=== PATIENT | male | born 1955 | race African-American/Black ===

== ENCOUNTER 2017-04-08 09:09 | Inpatient (IN) | payer OTHER ==
[~2017-04-08] VITALS: Ht 182.9 cm; Wt 109.0 kg
--- NOTE | 2017-04-08 09:40 | NUR ---
SEE ED ASSESSMENT FOR NOTES. COMFORT MEASURES IMPLEMENTED. PT RECLINED ON ROMMEL IN HI FOWLERS POSITION. CALL LIGHT W/IN REACH. NO S/S OF DISTRESS NOTED AT THIS TIME. PT AWAITING MSE. WILL CONTINUE TO MONITOR.
--- NOTE | 2017-04-08 10:28 | NUR ---
BREATHING TX COMPLETED. PT CONTINUES TO HAVE LOW O2 SAT AT 89% RA. DR. SANCHEZ MADE AWARE.
[2017-04-08 10:30] LABS: BASOPHIL % 0.2 % (0-2); PLATELET COUNT 207 x10^3mcL (130-400)
[2017-04-08 10:33] LABS: CALCIUM 8.7 mg/dL (8.5-10.1); CARBON DIOXIDE 30.8 mmol/L (21-32); CREATININE SERUM 1.3 mg/dL (0.7-1.3); POTASSIUM SERUM 3.8 mmol/L (3.5-5.1)
[2017-04-08 10:39] LABS: ALBUMIN 3.8 g/dL (3.4-5.0); BILIRUBIN TOTAL 0.6 mg/dL (0.20-1.00); TOTAL PROTEIN, SERUM 7.6 g/dL (6.4-8.2)
[2017-04-08 10:43] LABS: RED CELL DISTRIBUTION WIDTH 14.6 % (11.5-14.5)
--- NOTE | 2017-04-08 10:50 | NUR ---
MEDICATED ORDERED. PLEASE SEE EMR.
--- NOTE | 2017-04-08 11:34 | NUR ---
DR. SANCHEZ AT BEDSIDE FOR PLAN OF CARE.
--- NOTE | 2017-04-08 11:57 | NUR ---
REPORT GIVEN TO RENEE ELLINGTON FOR CONTINUATION OF CARE PRIMARY RN.
--- NOTE | 2017-04-08 12:00 | NUR ---
REPORT RECEIVED FROM ED, WILL AWAIT PT'S ARRIVAL.
[2017-04-08 12:38] LABS: MAGNESIUM 2.2 mg/dL (1.8-2.4); PHOSPHOROUS 3.9 mg/dL (2.5-4.9)
[2017-04-08 12:45] LABS: T3 TOTAL 0.87 ng/mL
[2017-04-08 12:50] LABS: FREE T4 0.95 ng/dL (0.76-1.46); FREE THYROXINE INDEX 2.7 ug/dL (1.4-4.5); T4(THYROXINE) 7.2 ug/dL (4.7-13.3)
--- NOTE | 2017-04-08 12:50 | NUR ---
MEDICATED ORDERED. PLEASE SEE EMR.
--- NOTE | 2017-04-08 13:00 | NUR ---
PT ARRIVED TO FLOOR.
--- NOTE | 2017-04-08 13:15 | NUR ---
PT A/OX4, TELE 2, NSR, DENIES CHEST PAIN, PULSES PRESENT, NO EDEMA NOTED, LUNGS CONGESTED ON 4L NC, STATES SOME DIFFICULTY BREATHING, O2 SAT 96%, BREATHING EVEN AND UNLABORED, BOWEL SOUNDS ACTIVE, DENIES N/V, ABLE TO VOID, AMBULATORY, SKIN WARM/DRY/INTACT, DENIES ALL PAIN AT THIS TIME, IV TO RIGHT HAND INFUSING AZITHROMYCIN 250ML AT 250ML PER HOUR, AZITHROMYCIN RECEIVED FROM ED, CALM AND COOPERATIVE, AT BEDSIDE, CALL LIGHT WITHIN REACH, WILL CONTINUE TO MONTIOR.
[2017-04-08 13:43] VITALS: BP 131/69
--- NOTE | 2017-04-08 14:08 | NUR ---
PT DENIES PAIN, STATES BREATHING IS "OKAY", CALL LIGHT WITHIN REACH, VISITORS AT BEDSIDE, WILL CONTINUE TO MONTIOR.
--- NOTE | 2017-04-08 15:04 | NUR ---
DR. METZ AT BEDSIDE ASSESSING PT.
--- NOTE | 2017-04-08 16:18 | NUR ---
PT TITRATED DOWN TO 2L NC, DENIES SOB, DENIES PAIN, O2 SAT 94%, CALL LIGHT WITHIN REACH, WILL CONTINUE TO MONITOR.
[2017-04-08 16:24] VITALS: BP 131/69
[2017-04-08 17:05] VITALS: BP 137/84
--- NOTE | 2017-04-08 17:13 | NUR ---
PT DENIES SOB, DENIES PAIN, CALL LIGHT WITHIN REACH, WILL CONTINUE TO MONITOR.
--- NOTE | 2017-04-08 18:13 | NUR ---
PT ASLEEP, NO INDICATION OF PAIN, BREATHING EVEN AND UNLABORED, CALL LIGHT WITHIN REACH, WILL ENDORSE PT TO NEXT SHIFT.
--- NOTE | 2017-04-08 20:14 | NUR ---
RECEIVED REPORT FROM DAY SHIFT RN. PT IS LYING IN BED IN POSITION OF COMFORT. PT A&O X4, ABLE TO FOLLOW COMMANDS, ABLE TO MAKE NEEDS KNOWN. TELE MONITOR #2. 2L O2 VIA NC. CRACKLES HEARD TO BILAT UPPER LOBES AND WHEEZING HEARD TO BILAT BASES OF LOBES VIA AUSCULTATION. CHEST RISE IS EQUAL AND SYMMETRICAL. BREATHING IS EVEN AND UNLABORED. PT IS ABLE TO AMBUATE WITH NO DIFFICULTY. PT DENIES PAIN AT THIS TIME. R HAND IV PATENT, INFUSING NS AT 10ML/HR. HOB AT 30 DEGREES. BED INLOWEST POSITION. CALL LIGHT WITHIN REACH. WILL CONTINUE TO MONITOR.
[2017-04-08 21:27] VITALS: BP 137/82
--- NOTE | 2017-04-09 00:21 | NUR ---
PT IS LYING IN BED IN POSITION OF COMFORT. CHEST RISE IS EQUAL AND SYMMETRICAL. BREATHING IS EVEN AND UNLABORED. HR STABLE. NO S/S OF PAIN OR DISTRESS NOTED. HOB AT 30 DEGREES. BED IN LOWEST POSITION. CALL LIGHT WITHIN REACH. WILL CONTINUE TO MONITOR FOR ANY ACUTE CHANGES.
[2017-04-09 06:37] VITALS: BP 135/78
--- NOTE | 2017-04-09 06:57 | NUR ---
PT IS LYING IN BED. NO S/S OF PAIN OR DISTRESS NOTED. CHEST RISE IS EQUALA ND SYMMETRICAL. BREATHING IS EVEN AND UNLABORED. WILL ENDORSE CARE TO ONCOMING RN.
--- NOTE | 2017-04-09 07:10 | NUR ---
RECEIVED PATIENT RESTING IN BED COMFORTABLY A/O X4, CLEAR SPEECH, NO NEURO DEFICITS NOTED. TELE # [address], DENIES CHEST PAIN. BREATHING EVEN UNLABBORED ON O2 2 L/MIN VIA NC, DENIES SOB, NO DISTRESS NOTED, ON RT PROTOCOL. ABD SOFT/ROUND, BS ACTIVE X4, DENIES N/V OR ABD PAIN. VOIDS FREELY WITH BRP. SKIN IS WARM CDI WITH IV TO RH INTACT INFUSING IVF WELL. DENIES ANY PAIN. PATIENT CALM WITH CARE. INSTRUCTED TO CALL FOR ASSISTANCE IF NEEDED. CALL LIGHT WITHIN REACH, BED IN LOW POSITION. WILL MONITOR.
[2017-04-09 07:17] LABS: CALCIUM 8.6 mg/dL (8.5-10.1); CARBON DIOXIDE 29.4 mmol/L (21-32); CHLORIDE SERUM 104 mmol/L (98-107); GFR1 > 60 mL/min; GLUCOSE SERUM 115 mg/dL (74-106); SODIUM SERUM 140 mmol/L (136-145)
[2017-04-09 07:34] LABS: BASOPHIL % 0.2 % (0-2); PLATELET COUNT 209 x10^3mcL (130-400)
[2017-04-09 07:35] LABS: RED CELL DISTRIBUTION WIDTH 15.3 % (11.5-14.5)
--- NOTE | 2017-04-09 08:46 | NUR ---
ROUNDS MADE- DR. JACKSON, RESIDENT TEAM, CHARGE NURSE AND PRIMARY NURSE AT BEDSIDE. POC REVIEWED WITH PATIENT- PATIENT INFORMED HE IS HERE DUE TO COPD EXACERBATION AND TREATMENT FOR THAT, ENCOURAGED TO USE I.S, WILL STAY TODAY. ALL QUESTIONS AND CONCERNS ADDRESSED. WILL MONITOR.
--- NOTE | 2017-04-09 10:11 | NUR ---
DR. BRADLEY (DO-RESIDENT) MADE AWARE PATIENT REFUSED AM MEDICATION (SEE eMAR). PATIENT MADE AWARE AND EDUCATED ON PURPOSE FOR EACH MEDICATION BUT STILL REFUSED.
--- NOTE | 2017-04-09 10:35 | NUR ---
SPOKE WITH DR. BRADLEY AND INFORMED HIM ENVIRONMENTAL DEPARTMENT MANAGER CALLED AND STATED PATIENT IS SINUS TACH WITH ELEVATED ST WAVE, HR IS IN THE 120'S (122). PER DR. BRADLEY WILL ORDER EKG AND TROPONIN. PATIENT WAS IN RESTROOM WHEN I SPOKE WITH DR. BRADLEY. PATIENT AMBUALTED SELF FROM RESTROOM TO BED, GAIT STEADY NO DISTRESS NOTED. SON AT BEDSIDE. BP 138/83, MAP 95, HR 87. ALL QUESTIONS AND CONCERNS ADDRESSED. WILL MONITOR.
[2017-04-09 10:43] VITALS: BP 131/73
--- NOTE | 2017-04-09 12:10 | NUR ---
RT AT BEDSIDE FOR BREATHING TREATMENT.
[2017-04-09 12:23] LABS: UA SPECIFIC GRAVITY 1.025 (1.005-1.035); microscopic required? YES; urine erythrocyte 2+ (NEGATIVE)
[2017-04-09 12:32] LABS: AMPHETAMINE QUAL UR NONE DETECTED (NEG <=1000)
[2017-04-09 14:41] VITALS: BP 133/67
--- NOTE | 2017-04-09 16:43 | NUR ---
PATIENT RESTING IN BED COMFORTABLY NO DISTRESS NOTED, VISITOR AT BEDSIDE. BS 158, PATIENT REFUSING COVERAGE, STATES DOES NOT TAKE INSULIN AT HOME. WILL NOTIFY MD. WILL CONTINUE TO MONITOR.
[2017-04-09 18:13] VITALS: BP 143/75
--- NOTE | 2017-04-09 18:15 | NUR ---
PATIENT RESTING IN BED COMFORTABLY NO DISTRESS NOTED, DENIES SOB OR PAIN. IV TO RH INTACT INFUSING IVF WELL FREE FROM REDNESS AND INFILTRATION. ALL NEEDS ATTENDED TO DURING SHIFT. SAFETY PRECAUTIONS MAINTAINED. WILL ENDORSE CARE TO ONCOMING NURSE.
--- NOTE | 2017-04-09 19:20 | NUR ---
RECEIVED PATIENT IN BED AWAKE, ALERT AND ORIENTED.NO SIGN OF DISTRESS NOTE. THIS TIME. ABDOMEN ROUND ,OBESE AND NON TENDER WITH ACTIVE BS. FAMILY MEMBERS AT BEDSIDE. TELE# 2 ST ON MONITOR, DENIES CHESTPAIN. SCD TO BLE IN PLACE, PT REFUSED HEPARIN SQ MD AWARE. ON O2 AT 2L VIA NC. WITH CLEAR BS SATTING AT 98%. IV TO RH INTACT AND INFUSING WELL. WILL CONTINUE TO MONITOR. CALL LIGHT WITHIN REACH.
[2017-04-09 20:52] VITALS: BP 134/72
--- NOTE | 2017-04-10 03:00 | NUR ---
SLEEPING WITH NO SIGN OF DISTRESS NOTED. BREATHING EASYA ND NONLABOR.
--- NOTE | 2017-04-10 05:10 | NUR ---
SLEPT AT LONG INTERVALS WITH NO SIGN OF RESPIRATORY DISTRESS THE ENTIRE SHIFT. ALL NEEDS ATTENDED.
[2017-04-10 05:34] VITALS: BP 137/83
[2017-04-10 06:28] LABS: CALCIUM 8.6 mg/dL (8.5-10.1); CARBON DIOXIDE 28.6 mmol/L (21-32); CHLORIDE SERUM 107 mmol/L (98-107); CREATININE SERUM 1.1 mg/dL (0.7-1.3); GFR1 > 60 mL/min; GLUCOSE SERUM 133 mg/dL (74-106); POTASSIUM SERUM 4.5 mmol/L (3.5-5.1); SODIUM SERUM 140 mmol/L (136-145)
[2017-04-10 06:45] LABS: PLATELET COUNT 205 x10^3mcL (130-400)
[2017-04-10 06:53] LABS: BASOPHIL % 0 % (0-2)
--- NOTE | 2017-04-10 07:10 | NUR ---
RECEIVED PATIENT SITTING UP IN BED A/O X4, CLEAR SPEECH, NO NEURO DEFICITS NOTED. TELE # [address], DENIES CHEST PAIN. BREATHING EVEN UNLABBORED ON RA, DENIES SOB, NO DISTRESS NOTED. ENCOUARGED USE OF I.S EVERY HOUR WHILE AWAKE. PATIENT DENIES ANY PAIN. IV TO RH INTACT INFUSING NS AT 100 ML/HR FREE FROM REDNESS AND INFILTRATION. PATIENT CALM AND COOPERATIVE WITH CARE. INSTRUCTED TO CALL FOR ASSISTANCE IF NEEDED. CALL LIGHT WITHIN REACH, BED IN LOW POSITION. WILL MONITOR.
--- NOTE | 2017-04-10 09:14 | NUR ---
ROUNDS MADE- DR. JACKSON, RESIDENT TEAM, CHARGE NURSE AND PRIMARY NURSE AT BEDSIDE. POC REVIEWED WITH PATIENT- PATIENT INFORMED OF UA RESULTS- BLOOD IN URINE, PATIENT INFORMED TO FOLLOW UP WITH PCP REGARDING BLOOD IN URINE FOR FOLLOW TESTING, THERE WAS A CHANGE IN PATIENTS EKG BUT TROPONINS WERE NEGATIVE. PATIENT STABLE FOR DISCHARGE HOME TODAY. ALL QUESTIONS AND CONCERNS ADDRESSED. WILL MONITOR.
[2017-04-10 12:11] VITALS: BP 141/78
--- NOTE | 2017-04-10 13:11 | NUR ---
PATIENT RESTING IN BED COMFORTABLY, NO DISTRESS NOTED. FAMILY AT BEDSIDE. PATIENT TO BE DISCHARGED TODAY PER MD ORDER, NO ORDERS AT THIS TIME. WILL FOLLOW UP WITH MD. SAFETY PRECAUTIONS MAINTANIED. WILL MONITOR.
--- NOTE | 2017-04-10 13:29 | NUR ---
Echocardiogram pending-needs to know why test is being ordered and the the cost
--- NOTE | 2017-04-10 13:31 | NUR ---
DR. BRADLEY (DO-RESIDENT) AT BEDSIDE TO SPEAK WITH PATIENT REGARDING DISCHARGE AND PLAN FOR FOLLOW UP WITH PCP AND PRESCRIPTION. ALL QUESTIONS AND CONCERNS ADDRESSED. WILL MONITOR.
[2017-04-10 13:35] VITALS: BP 141/78
[2017-04-10] MEDS ORDERED: SUDAFED CONGEST30 MG PO (13:43)
[2017-04-10] MEDS ORDERED: SYMBICORT1 AE2 INH (13:49)
--- NOTE | 2017-04-10 14:43 | NUR ---
PATIENT IN STABLE CONDITION NO DISTRESS NOTED. PATIENT BEING DISCHARGED PER MD ORDER. DISCHARGE INSTRUCTIONS, BELONGINGS LIST AND EDUCATION GIVEN TO PATIENT. VEBRALIZED UNDERSTANDING TO FOLLOW UP WITH PCP ON 04/15/17, ALL QUESTIONS AND CONCERNS ADDRESSED. PATIENTS SON AT BEDSIDE. IV TO RH REMOVED, CATH INTACT. ID BANDS REMOVED, TELE MONITOR REMOVED. PATIENT ASSISTED DOWN TO LOBBY ACCOMPANIED BY RN AND SON. ALL PERSONAL BELONGINGS SENT HOME WITH PATIENT.
--- NOTE | 2017-04-11 08:18 | NUR ---
echocardiogram not done patient discharged
== END 2017-04-10 14:43 | disposition home or self-care (01) | DRG 190 ==
LOC: ED 09:09 → DU 11:46
PROVIDERS: Emergency Medicine; ADMIT Family Medicine
DX: J44.1 Chronic obstructive pulmonary disease with (acute) exacerbation (principal); J96.01 Acute respiratory failure with hypoxia; R73.03 Prediabetes; E78.5 Hyperlipidemia, unspecified; E66.9 Obesity, unspecified; Z68.32 Body mass index [BMI] 32.0-32.9, adult; F17.210 Nicotine dependence, cigarettes, uncomplicated; R94.8 Abnormal results of function studies of other organs and systems
CPT/HCPCS: 82962; 83880; 84439; 94150; 99406; J0456; J0696; J1644; J1956; J2920; J2930; J7030; J7050; J7613; J7620; J7626; Q0092